=== PATIENT | female | born 1975 ===

== ENCOUNTER 2017-08-30 06:31 | Emergency (ER) | payer OTHER ==
[~2017-08-30] VITALS: Ht 177.8 cm; Wt 88.5 kg
== END 2017-08-30 14:31 | disposition home or self-care (01) ==
LOC: ER 06:31
DX: L03.116 Cellulitis of left lower limb (principal)

== ENCOUNTER 2019-02-03 17:17 | Emergency (ER) | payer OTHER ==
[~2019-02-03] VITALS: Ht 177.8 cm; Wt 88.5 kg
[2019-02-03] MEDS ORDERED: BISOPROLOL-HCT1 EACH (18:02)
== END 2019-02-03 22:58 | disposition home or self-care (01) ==
LOC: ER 17:17
DX: R42 Dizziness and giddiness (principal)